=== PATIENT | male | born 1955 | race African-American/Black ===

== ENCOUNTER 2024-01-13 19:46 | Emergency (ER) | payer BC, MEDICAID ==
[~2024-01-13] VITALS: Ht 175.3 cm; Wt 100.0 kg
[2024-01-13 19:54] VITALS: TEMP 98.2; O2SAT 100
[2024-01-13 20:44] VITALS: BP 125/87; PULSE 98; RESP 18
[2024-01-13] MEDS: OXYCODONE HCL/ACETAMINOPHEN 5/325MG TABLET PO ONE (20:44)
== END 2024-01-13 21:56 | disposition home or self-care (01) ==
LOC: ER 19:46
DX: R51.9 Headache, unspecified (principal); E78.00 Pure hypercholesterolemia, unspecified; Y08.89XA Assault by other specified means, initial encounter; Y93.89 Activity, other specified; Y92.89 Other specified places as the place of occurrence of the external cause; Y99.8 Other external cause status
CPT/HCPCS: 70486; 99284